=== PATIENT | male | born 1955 | race Caucasian/White ===

== ENCOUNTER → 2021-06-26 | Outpatient (CLI) | payer MEDICARE, OTHER ==
[~2021-06-26] MED LIST: MIDAZOLAM HCL 5 MG/ML-1ML VIAL ONE; diphenhdrAMINE HCL 50 MG/1 ML VL ONE; fentaNYL CITRATE 100 MCG/2 ML VL ONE
== END | disposition home or self-care (01) ==
LOC: XYW 13:28
PROVIDERS: ATTEND Internal Medicine
DX: I08.8 Other rheumatic multiple valve diseases (principal); I44.7 Left bundle-branch block, unspecified
CPT/HCPCS: 93306

== ENCOUNTER → 2021-06-27 | Day surgery (SDC) | payer MEDICARE, OTHER ==
[~2021-06-27] VITALS: Ht 177.8 cm; Wt 83.9 kg
[~2021-06-27] MED LIST changes: -MIDAZOLAM HCL 5 MG/ML-1ML VIAL ONE; -fentaNYL CITRATE 100 MCG/2 ML VL ONE
[2021-06-27] MEDS: MIDAZOLAM HCL 5 MG/ML-1ML VIAL ONE ×6 (10:41→11:09)
[2021-06-27] MEDS: fentaNYL CITRATE 100 MCG/2 ML VL ONE ×5 (10:41→11:02)
[2021-06-27 11:35] VITALS: BP 142/88
== END | disposition home or self-care (01) ==
LOC: GI 09:26
PROVIDERS: ATTEND Internal Medicine Gastroenterology
DX: Z12.11 Encounter for screening for malignant neoplasm of colon (principal); K64.8 Other hemorrhoids; I10 Essential (primary) hypertension; Z98.890 Other specified postprocedural states; Z79.899 Other long term (current) drug therapy
CPT/HCPCS: G0121; J1200; J2250; J3010; J7030; 99153; G0500